=== PATIENT | male | born 1975 | race Caucasian/White ===

== ENCOUNTER 2017-10-25 10:29 | Emergency (ER) | payer BC ==
[2017-10-25 10:29] VITALS: BMI 36.2
--- NOTE | 2017-10-25 11:41 | C.PDOC ---
History Of Present Illness 41 y/o male with history of Cholecystectomy presents to ED with c/o sharp RUQ abdominal pain associated with nausea since yesterday. pain is minimal at this time, resolved spontaeously, but pt wanted to get it checked out. Patient reports last Bowel movement this morning and denies vomiting, dysuria, hematuria , back pain, fever or chills. or any other complaints at this time. Time Seen by Provider: 10/25/17 11:00 Chief Complaint (Nursing): Abdominal Pain History Per: Patient History/Exam Limitations: no limitations Onset/Duration Of Symptoms: Days Current Symptoms Are (Timing): Still Present Location Of Pain/Discomfort: RUQ Past Medical History Reviewed: Historical Data, Nursing Documentation, Vital Signs Vital Signs: Last Vital Signs Temp 98.6 F 10/25/17 15:33 Pulse 73 10/25/17 15:33 Resp 20 10/25/17 15:33 BP 124/85 10/25/17 15:33 Pulse Ox 96 10/25/17 20:47 - Medical History PMH: Gastrointestinal Ulcer (G. I. bleed), Gall Bladder Disease Surgical History: Cholecystectomy, Endoscopy - [facility] Procedures RESECTION OF GALLBLADDER, PERCUTANEOUS ENDOSCOPIC APPROACH (12/13/15) Family History: States: No Known Family Hx - Social History Hx Alcohol Use: Yes Hx Substance Use: No (marijuana) - Immunization History Hx Tetanus Toxoid Vaccination: Yes Hx Influenza Vaccination: No Hx Pneumococcal Vaccination: No Review Of Systems Constitutional: Negative for: Fever, Chills Gastrointestinal: Positive for: Nausea, Abdominal Pain. Negative for: Vomiting , Diarrhea Genitourinary: Negative for: Dysuria, Hematuria Skin: Negative for: Rash Physical Exam - Physical Exam Appears: Non-toxic, No Acute Distress Skin: Warm, Dry, No Rash Head: Atraumatic, Normacephalic Eye(s): bilateral: Normal Inspection Oral Mucosa: Moist Neck: Supple Cardiovascular: Rhythm Regular Respiratory: Normal Breath Sounds, No Rales, No Rhonchi, No Wheezing Gastrointestinal/Abdominal: Bowel Sounds, Soft, Tenderness (Minimal RUQ ), No Guarding, No Rebound Back: No CVA Tenderness Neurological/Psych: Oriented x3, Normal Speech, Normal Cognition ED Course And Treatment - Laboratory Results Result Diagrams: 10/25/17 11:48 10/25/17 11:48 O2 Sat by Pulse Oximetry: 96 (RA) Pulse Ox Interpretation: Normal Medical Decision Making Medical Decision Making: pt with neg ruq us, pain resolved, labs wnl except for slightly elevated tbili, abdomen on [id number] non tender, recommend d/c home with f/u Dr Rockwell and urology for hematuria. Return to ER for any worse symptoms. Disposition Counseled Patient/Family Regarding: Studies Performed, Diagnosis, Need For Followup, Rx Given - Disposition Referrals: Lamont Jewell MD [Staff Provider] - Eulalio Diamond MD [Staff Provider] - Disposition: HOME/ ROUTINE Disposition Time: 15:14 Condition: GOOD Additional Instructions: Please follow up with Dr Jewell for right upper quadrant pain. Call for appointment,. ALso need to f/u with Dr Diamond or urologist of your choice, for hematuria- blood in the urine, as well as your primary care doctor, Return for any worse symptoms, . Forms: General Discharge Instructions, [facility] (Mongolian), Work Excuse - Clinical Impression Clinical Impression: Abdominal pain - PA / TRANSFUSION AIDE / Resident Statement MD/DO has reviewed & agrees with the documentation as recorded. - Scribe Statement The provider has reviewed the documentation as recorded by the Bookeribsalina Gamboa All medical record entries made by the [place] were at my direction and personally dictated by me. I have reviewed the chart and agree that the record accurately reflects my personal performance of the history, physical exam, medical decision making, and the department course for this patient. I have also personally directed, reviewed, and agree with the discharge instructions and disposition.
[2017-10-25 11:53] LABS: BASO # 0.1 K/uL (0.0-0.2); EOS # 0.1 K/uL (0.0-0.7); EOS % 1.7 % (0.0-4.0); HEMOGLOBIN 14.3 g/dL (12.0-18.0); LYMPH # 1.9 K/uL (1.0-4.3); LYMPH % 29.2 % (20.0-40.0); MEAN CELL VOLUME 89.7 fL (80.0-94.0); MEAN CORPUSCULAR HEMOGLOBIN 30.7 pg (27.0-31.0); MEAN CORPUSCULAR HGB CONC 34.2 g/dL (33.0-37.0); MEAN PLATELET VOLUME 7.6 fL (7.2-11.7); MONO # 0.6 K/uL (0.0-0.8); MONO % 8.6 % (0.0-10.0); NEUT # 3.9 K/uL (1.8-7.0); NEUT % 59.5 % (50.0-75.0); NRBC % 0.1 % (0.0-2.0); RBC 4.66 Mil/uL (4.40-5.90); RED CELL DISTRIBUTION WIDTH 13.4 % (11.5-14.5); WHITE BLOOD COUNT 6.5 K/uL (4.8-10.8)
[2017-10-25 12:13] LABS: SQUAMOUS EPITHIAL < 1 /hpf (0-5); URINE BACTERIA RARE (<OCC); URINE BILIRUBIN NEGATIVE (NEGATIVE); URINE BLOOD 1+ (NEGATIVE); URINE CLARITY Clear (Clear); URINE COLOR Yellow (YELLOW); URINE GLUCOSE (UA) NORMAL (Normal); URINE LEUKOCYTE ESTERASE NEG Leu/uL (Negative); URINE PROTEIN NEGATIVE (NEGATIVE); URINE UROBILINOGEN NORMAL mg/dL (0.2-1.0)
[2017-10-25 12:14] LABS: ALB/GLOB RATIO 1.3 (1.0-2.1); ALBUMIN 4.7 g/dL (3.5-5.0); ALT/SGPT 41 U/L (21-72); AST/SGOT 40 U/L (17-59); BLOOD UREA NITROGEN 15 mg/dL (9-20); CALCIUM 9.5 mg/dl (8.6-10.4); GFR NON-AFRICAN AMERICAN > 60; LIPASE 93 U/L (23-300)
--- NOTE | 2017-10-25 12:57 | US ---
Date of service: 10/25/2017 HISTORY: ruq pain, s/p cholecystectomy COMPARISON: CT abdomen and pelvis with contrast performed 12/17/15 TECHNIQUE: Sonographic evaluation of the right upper quadrant of the abdomen. FINDINGS: Examination limited by habitus. LIVER: Measures 19.4 cm in length. Echogenic liver may be seen in setting of hepatic parenchymal disease or fatty infiltration. No focal hepatic mass identified. No intrahepatic bile duct dilatation. GALLBLADDER: Cholecystectomy. COMMON BILE DUCT: Measures 6 mm. PANCREAS: Not well-visualized. RIGHT KIDNEY: Measures 12.3 x 5.8 x 6.1 cm. No obstructing calculus or hydronephrosis identified. AORTA: Limited visualization appears grossly unremarkable. IVC: Limited visualization appears grossly unremarkable. OTHER FINDINGS: None . IMPRESSION: Limited study. Hepatomegaly. Echogenic liver may be seen in setting of hepatic parenchymal disease or fatty infiltration. Cholecystectomy.
[2017-10-25 15:34] VITALS: BP 124/85; PULSE 73; RESP 20; TEMP 98.6
[2017-10-25 20:47] VITALS: O2SAT 96
== END 2017-10-25 15:48 | disposition home or self-care (01) ==
LOC: C.ER 10:29
DX: R10.11 Right upper quadrant pain (principal)